=== PATIENT | female | born 1995 | race Caucasian/White ===

== ENCOUNTER 2020-01-30 15:43 | Emergency (ER) | payer OTHER ==
[2020-01-30] MEDS ORDERED: SODIUM CHLORIDE 0.9% 1,000 ML IV STA (16:04)
[2020-01-30] MEDS ORDERED: ACETAMINOPHEN TAB 500 MG TAB PO STA (16:04)
--- NOTE | 2020-01-30 16:11 | ED ---
Abdominal Pain HPI - General Chief Complaint: Abdominal Pain Stated Complaint: Abd pain-23wks PG Time Seen by Provider: 01/30/20 15:49 Source: patient Mode of arrival: wheelchair Limitations: no limitations - History of Present Illness Initial Comments: Patient is a 24-year-old female, currently 23 weeks , presenting to the emergency Department with complaints of right lower quadrant pain x 1 day. She states she started feeling a sharp pain this morning approximately 10 AM and the pain has continued and worsened throughout today. She is . Her COMPUTER SYSTEMS HARDWARE ANALYST is Dr. Dejesus, however patient has yet to see him as patient just recently moved [facility] from [place] 3wks ago. She is currently living with her mother, who has recently tested positive for Covid-19. Patient denies any fever, cough, chest pain, shortness of breath, nausea, vomiting, diarrhea. She denies any previous abdominal surgeries. She denies any vaginal bleeding, discharge. She denies dysuria. She describes the pain as sharp, worse with standing. Some mild alleviation of symptoms with laying still. She states sitting forward makes the pain worse. She has never had this kind of pain before. She has no other complaints at this time. Upon arrival to the ER, her vital signs are stable. - Related Data Previous Rx's Medication Instructions Recorded traMADol HCl [Ultram] 50 mg PO Q4H PRN #15 tab 01/03/16 Ibuprofen [Motrin] 600 mg PO Q6HR PRN #20 tab 05/16/16 Allergies Allergy/AdvReac Type Severity Reaction Status Date / Time No Known Allergies Allergy Verified 01/30/20 15:48 Review of Systems ROS Statement: Those systems with pertinent positive or pertinent negative responses have been documented in the HPI. ROS Other: All systems not noted in ROS Statement are negative. Past Medical History Past Medical History: No Reported History History of Any Multi-Drug Resistant Organisms: None Reported Past Surgical History: Orthopedic Surgery, Tonsillectomy Past Psychological History: No Psychological Hx Reported Smoking Status: Never smoker Past Alcohol Use History: None Reported Past Drug Use History: None Reported General Exam - General Exam Comments Initial Comments: GENERAL: Well-appearing, well-nourished and in no acute distress. HEAD: Atraumatic, normocephalic. EYES: Pupils equal round and reactive to light, extraocular movements intact, sclera anicteric, conjunctiva are normal. ENT: TMs normal, nares patent, oropharynx clear without exudates. Moist mucous membranes. NECK: Normal range of motion, supple without lymphadenopathy or JVD. LUNGS: Breath sounds clear to auscultation bilaterally and equal. No wheezes rales or rhonchi. HEART: Regular rate and rhythm without murmurs, rubs or gallops. ABDOMEN: 23 weeks , pain with palpation of the right lower quadrant, mild guarding. Increased pain with sitting forward. Soft, normoactive bowel sounds. : Deferred EXTREMITIES: Normal range of motion, no pitting or edema. No clubbing or cyanosis. NEUROLOGICAL: Normal speech, normal gait. PSYCH: Normal mood, normal affect. SKIN: Warm, Dry, normal turgor, no rashes or lesions noted. Limitations: no limitations Course Vital Signs 01/30/20 01/30/20 01/30/20 15:46 18:21 18:50 Temperature 98.1 F 98.0 F Pulse Rate 94 73 Respiratory 20 18 Rate Blood Pressure 115/68 100/62 O2 Sat by Pulse 98 98 Oximetry Medical Decision Making - Medical Decision Making Patient is a 24-year-old female, currently 23 weeks , , presenting with right lower quadrant pain x [address] Dejesus. Vitals are stable. Patient has pain in right lower quadrant on exam. Patient was given a Tylenol. Lab workup shows no acute abnormalities. Urine is normal, no signs of infection. ultrasound shows a single live IUP approximately 23 weeks gestation. Heart rate is normal at 147. No acute abnormalities seen. An ultrasound of the right lower quadrant shows appendix is not seen at this time however visualized portions of the right lower quadrant shows no gross abnorma lity. I discussed with patient that her pains are most likely related to round ligament pain. I did consult with on-call COMPUTER SYSTEMS HARDWARE ANALYST, Dr. Lal who agrees with this plan of care. She did not recommend any further workup at this time. Patient will follow up with their office on Sunday for further recommendations. Patient is stable for discharge and is agreement with this plan of care. Return parame ters were discussed with the patient and she verbalized understanding. Case discussed with Dr. Peraza. - Lab Data Result diagrams: 01/30/20 16:25 01/30/20 16:25 Lab Results 01/30/20 01/30/20 01/30/20 Range/Units 16:25 16:25 16:25 WBC 10.2 (3.8-10.6) k/uL RBC 3.85 (3.80-5.40) m/uL Hgb 11.8 (11.4-16.0) gm/dL Hct 34.1 (34.0-46.0) % MCV 88.7 (80.0-100.0) fL MCH 30.7 (25.0-35.0) pg MCHC 34.7 (31.0-37.0) g/dL RDW 12.1 (11.5-15.5) % Plt Count 222 (150-450) k/uL Neutrophils % 76 % Lymphocytes % 18 % Monocytes % 3 % Eosinophils % 1 % Basophils % 0 % Neutrophils # 7.7 (1.3-7.7) k/uL Lymphocytes # 1.8 (1.0-4.8) k/uL Monocytes # 0.3 (0-1.0) k/uL Eosinophils # 0.1 (0-0.7) k/uL Basophils # 0.0 (0-0.2) k/uL Sodium 135 L (137-145) mmol/L Potassium 4.1 (3.5-5.1) mmol/L Chloride 108 H (98-107) mmol/L Carbon Dioxide 20 L (22-30) mmol/L Anion Gap 7 mmol/L BUN 7 (7-17) mg/dL Creatinine 0.46 L (0.52-1.04) mg/dL Est GFR (CKD-EPI)AfAm >90 (>60 ml/min/1.73 sqM) Est GFR (CKD-EPI)NonAf >90 (>60 ml/min/1.73 sqM) Glucose 83 (74-99) mg/dL Plasma Lactic Acid Nikunj (0.7-2.0) mmol/L Calcium 8.6 (8.4-10.2) mg/dL Total Bilirubin 0.3 (0.2-1.3) mg/dL AST 25 (14-36) U/L ALT 14 (4-34) U/L Alkaline Phosphatase 71 (38-126) U/L Total Protein 6.4 (6.3-8.2) g/dL Albumin 3.6 (3.5-5.0) g/dL Urine Color Light Yellow Urine Appearance Clear (Clear) Urine pH 6.0 (5.0-8.0) Ur Specific [place] 1.011 (1.001-1.035) Urine Protein Negative (Negative) Urine Glucose (UA) Negative (Negative) Urine Ketones Negative (Negative) Urine Blood Negative (Negative) Urine Nitrite Negative (Negative) Urine Bilirubin Negative (Negative) Urine Urobilinogen <2.0 (<2.0) mg/dL Ur Leukocyte Esterase Negative (Negative) 01/30/20 Range/Units 16:25 WBC (3.8-10.6) k/uL RBC (3.80-5.40) m/uL Hgb (11.4-16.0) gm/dL Hct (34.0-46.0) % MCV (80.0-100.0) fL MCH (25.0-35.0) pg MCHC (31.0-37.0) g/dL RDW (11.5-15.5) % Plt Count (150-450) k/uL Neutrophils % % Lymphocytes % % Monocytes % % Eosinophils % % Basophils % % Neutrophils # (1.3-7.7) k/uL Lymphocytes # (1.0-4.8) k/uL Monocytes # (0-1.0) k/uL Eosinophils # (0-0.7) k/uL Basophils # (0-0.2) k/uL Sodium (137-145) mmol/L Potassium (3.5-5.1) mmol/L Chloride (98-107) mmol/L Carbon Dioxide (22-30) mmol/L Anion Gap mmol/L BUN (7-17) mg/dL Creatinine (0.52-1.04) mg/dL Est GFR (CKD-EPI)AfAm (>60 ml/min/1.73 sqM) Est GFR (CKD-EPI)NonAf (>60 ml/min/1.73 sqM) Glucose (74-99) mg/dL Plasma Lactic Acid Nikunj 1.1 (0.7-2.0) mmol/L Calcium (8.4-10.2) mg/dL Total Bilirubin (0.2-1.3) mg/dL AST (14-36) U/L ALT (4-34) U/L Alkaline Phosphatase (38-126) U/L Total Protein (6.3-8.2) g/dL Albumin (3.5-5.0) g/dL Urine Color Urine Appearance (Clear) Urine pH (5.0-8.0) Ur Specific [place] (1.001-1.035) Urine Protein (Negative) Urine Glucose (UA) (Negative) Urine Ketones (Negative) Urine Blood (Negative) Urine Nitrite (Negative) Urine Bilirubin (Negative) Urine Urobilinogen (<2.0) mg/dL Ur Leukocyte Esterase (Negative) Disposition Clinical Impression: Abdominal pain, 23 weeks gestation of Disposition: HOME SELF-CARE Condition: Stable Instructions (If sedation given, give patient instructions): Abdominal Pain in (ED) Additional Instructions: Please return to the Emergency Department if symptoms worsen or any other concerns. Follow-up with Dr. Dejesus's office as discussed. May continue with Tylenol as needed for pain. Is patient prescribed a controlled substance at d/c from ED?: No Referrals: None,Stated [Primary Care Provider] - 1-2 days
[2020-01-30 16:42] LABS: Basophils % (A) 0 %; Eosinophils # (A) 0.1 k/uL (0-0.7); Eosinophils % (A) 1 %; HCT 34.1 % (34.0-46.0); HGB 11.8 gm/dL (11.4-16.0); Lymphocytes # (A) 1.8 k/uL (1.0-4.8); Lymphocytes % (A) 18 %; MCH 30.7 pg (25.0-35.0); MCHC 34.7 g/dL (31.0-37.0); MCV 88.7 fL (80.0-100.0); Monocytes # (A) 0.3 k/uL (0-1.0); Monocytes % (A) 3 %; Neutrophils # (A) 7.7 k/uL (1.3-7.7); Neutrophils % (A) 76 %; Platelet Count 222 k/uL (150-450); RBC 3.85 m/uL (3.80-5.40); RDW 12.1 % (11.5-15.5); WBC 10.2 k/uL (3.8-10.6)
[2020-01-30 16:43] LABS: Appearance,Urine Clear (Clear); Bilirubin,Urine Negative (Negative); Blood,Urine Negative (Negative); Color,Urine Light Yellow; Glucose,Urine (UA) Negative (Negative); Ketones,Urine Negative (Negative); Leukocyte Esterase,Urine Negative (Negative); Nitrite,Urine Negative (Negative); Protein,Urine Negative (Negative); Specific Gravity,Urine 1.011 (1.001-1.035); Urobilinogen,Urine <2.0 mg/dL (<2.0)
[2020-01-30 16:59] LABS: ALT 14 U/L (4-34); AST 25 U/L (14-36); African American GFR (CKD) >90 (>60 ml/min/1.73 sqM); Albumin 3.6 g/dL (3.5-5.0); Alkaline Phosphatase 71 U/L (38-126); Anion Gap 7 mmol/L; Blood Urea Nitrogen 7 mg/dL (7-17); Calcium 8.6 mg/dL (8.4-10.2); Carbon Dioxide 20 mmol/L (22-30); Chloride 108 mmol/L (98-107); Glucose 83 mg/dL (74-99); Non-African American GFR(CKD) >90 (>60 ml/min/1.73 sqM); Potassium 4.1 mmol/L (3.5-5.1); Sodium 135 mmol/L (137-145); Total Bilirubin 0.3 mg/dL (0.2-1.3); Total Protein 6.4 g/dL (6.3-8.2)
--- NOTE | 2020-01-30 18:03 | US ---
EXAMINATION TYPE: US OB >= 14 wk fetus DATE OF EXAM: 01/30/2020 COMPARISON: None CLINICAL HISTORY: 24-year-old female, 23 wks preg, RLQ abd pain. Right pelvic pain x 1 day TECHNIQUE: Transabdominal (TA) FINDINGS: GESTATIONAL AGE / DATING Physician Established: (23 weeks/3 days) EDC: 05/25/2020 Dates by LMP: Unknown Dates by First Scan: This is 1st scan here Dates by Current Scan: (23 weeks/6 days) EDC: 05/22/2020 SURVEY IUP: Single PLACENTA: Anterior PREVIA: No Previa DAVE: 13.9 cm Normal CERVICAL LENGTH (transabdominal: norm > 3.0cm): 3.1 cm BIOMETRY PRESENTATION: Breech LIE: Longitudinal BPD: 5.8 cm 23 weeks / 6 days HC: 21.8 cm 23 weeks / 6 days AC: 20.1 cm 24 weeks / 5 days FL: 4.3 cm 24 weeks / 1 days ESTIMATED WEIGHT IN GRAMS: 693.3 grams ESTIMATED WEIGHT IN LBS/OZ: 1 lbs. 8 oz. WEIGHT PERCENTAGE BASED ON ESTABLISHED DATES: 86% HC/AC: 1.08 Normal FL/AC: 21.48 Normal HEART RATE: 147 bpm RHYTHM: Normal Reference Assistant notes: Viable single IUP measuring 23 weeks 6 days with a heart rate of 147bpm and an est imated delivery date of 05/22/2020. IMPRESSION: 1. Single live intrauterine with established gestational age of 23 weeks 3 days. Current ul trasound biometry is concordant (23 weeks 6 days) placing the child at the 86th percentile for weight . 2. Normal DAVE (13.9 cm). Anterior placenta without previa. 3. Note that the anatomy was not assessed on this emergent exam.
--- NOTE | 2020-01-30 18:04 | US ---
EXAMINATION TYPE: US abdomen APPY DATE OF EXAM: 01/30/2020 COMPARISON: NONE CLINICAL HISTORY: 24-year-old female 23 wks preg, RLQ abd pain. Right pelvic pain x 1 day, patient is 23 weeks TECHNIQUE: Targeted ultrasound examination of the right lower quadrant with graded compression for as sessment of the appendix. FINDINGS: APPENDIX Appendix not seen at this time, visualized portions of RLQ show no gross adenopathy IMPRESSION: Unable to identify the appendix. Further clinical correlation will be needed or any suspected acute a ppendicitis.
[2020-01-30 18:22] VITALS: BP 100/62; PULSE 73; RESP 18
[2020-01-30 18:51] VITALS: TEMP 98
== END 2020-01-30 18:51 | disposition home or self-care (01) ==
LOC: EC 15:43
DX: O26.892 Other specified pregnancy related conditions, second trimester (principal); Z3A.23 23 weeks gestation of pregnancy
CPT/HCPCS: 36415; 76705; 76805; 80053; 81003; 83605; 85025; 96360; 96361; 99284

== ENCOUNTER 2020-03-26 14:56 | Outpatient (CLI) | payer OTHER ==
[2020-03-26 16:10] VITALS: BP 112/64; PULSE 83; RESP 16; TEMP 96.6
[2020-03-26 17:16] LABS: Appearance,Urine Clear (Clear); Bilirubin,Urine Negative (Negative); Blood,Urine Negative (Negative); Color,Urine Yellow; Glucose,Urine (UA) Negative (Negative); Ketones,Urine Negative (Negative); Leukocyte Esterase,Urine Negative (Negative); Nitrite,Urine Negative (Negative); PH, Urine 5.5 (5.0-8.0); Protein,Urine Negative (Negative); Specific Gravity,Urine 1.011 (1.001-1.035); Urobilinogen,Urine <2.0 mg/dL (<2.0)
--- NOTE | 2020-04-04 08:23 | P.MSEPDOC ---
Presenting Problems - Arrival Data Date of Arrival on Unit: 03/26/20 Time of Arrival on Unit: 15:50 Mode of Transport: Ambulatory - Complaint OB-Reason for Admission/Chief Complaint: Possible Onset of Labor Medical History - Information : 1 Para: 0 Term: 0 : 0 Abortions: Spontaneous or Elective: 0 Number of Living Children: 0 - Gestational Age Gestational Age by KARRIE (wks/days): 31 Weeks and 3 Days Review of Systems - Review of Systems Constitutional: No problems Breast: No problems ENT: No problems Cardiovascular: No problems Respiratory: No problems Gastrointestinal: No problems Genitourinary: No problems Musculoskeletal: No problems Neurological: No problems Skin: No problems Vital Signs - Temperature Temperature: 96.6 F Temperature Source: Temporal Artery Scan - Pulse Right Radial Pulse Rate: 83 Pulse Assessment Method: Auscultation - Respirations Respiratory Rate: 16 Oxygen Delivery Method: Room Air - Blood Pressure Right Arm Blood Pressure: 112/64 Blood Pressure Mean: 80 Blood Pressure Source: Automatic Cuff Medical Screen Scoring (Pre) - Cervical Exam Dilation: 0 cm = 0 Effacement: Exam Deferred Membranes: Intact - Uterine Contractions Frequency: < 36 weeks = 6 Duration: N/A Intensity: N/A - Maternal Vital Signs Maternal Temperature: N/A Maternal Blood Pressure: N/A Signs of Preeclampsia: N/A Maternal Respirations: N/A - Maternal Trauma Maternal Trauma: N/A - Assessment - Baby A Baseline FHR: 130 Heart Rate - NICHD Category: Category I (Normal) = 0 NST: Reactive Position: N/A Station: N/A - Total Score - Baby A Total Score - Baby A: 6 - Total Score - Baby B Total Score - Baby B: 6 - Total Score - Baby C Total Score - Baby C: 6 - Level of Risk - Baby A Level of Risk - Baby A: Medium (6-9) - Level of Risk - Baby B Level of Risk - Baby B: Medium (6-9) - Level of Risk - Baby C Level of Risk - Baby C: Medium (6-9) Physician Notification (Pre) - Physician Notified Physician Notified Date: 03/26/20 Physician Notified Time: 16:00 New Order Received: Yes - Notification Comment Comment: triage orders and ffn. coming over to evaluate. cervix closed and thick Medical Screen Scoring (Post) - Cervical Exam Dilation: 0 cm = 0 Effacement: Exam Deferred Membranes: Intact - Uterine Contractions Frequency: > 5 minutes apart = 1 Duration: > 40 seconds = 2 Intensity: N/A - Maternal Vital Signs Maternal Temperature: N/A Maternal Blood Pressure: N/A Signs of Preeclampsia: N/A Maternal Respirations: N/A - Pain Assessment Pain Scale Used: Numeric (1 - 10) Pain Intensity: 3 Pain Description: Burning, Cramping Pain Frequency: Intermittent Pain Duration: 4 Pain Duration Units: Hours Pain Behavior: Vocalization Pain Aggravating Factors: Activity, Standing - Maternal Trauma Maternal Trauma: N/A - Assessment - Baby A Heart Rate: 130 Heart Rate - NICHD Category: Category I (Normal) = 0 NST: Reactive Position: N/A Station: N/A - Total Score Total Score - Baby A: 3 Total Score - Baby B: 3 Total Score - Baby C: 3 - Post Treatment Level of Risk Post Treatment Level of Risk - Baby A: Low (0-5) Post Treatment Level of Risk - Baby B: Low (0-5) Post Treatment Level of Risk - Baby C: Low (0-5) Physician Notification (Post) - Physician Notified Physician Notified Date: 03/26/20 Physician Notified Time: 17:20 Physician/Practitioner Notified:: sofía Spoke With: sofía New Order Received: Yes - Notification Comment Comment: home with instructions. here on unit. viewed strip given report. see obix charting. Disposition - Disposition OB Disposition: Discharge to home Discharge Date: 03/26/20 Discharge Time: 17:20 I agree with the RN Medical Screening Exam: Yes Risk & Benefit of care provided described in d/c instruction: Yes Diagnosis: FALSE LABOR BEFORE 37 COMPLETED WEEKS OF GEST, THIRD TRI
== END 2020-03-26 17:20 | disposition home or self-care (01) ==
LOC: FBPOP 14:56
PROVIDERS: ATTEND Obstetrics & Gynecology
DX: O47.03 False labor before 37 completed weeks of gestation, third trimester (principal); Z3A.31 31 weeks gestation of pregnancy
CPT/HCPCS: 59025; 81003; 82731; 99213

== ENCOUNTER → 2020-04-06 | Outpatient (CLI) | payer OTHER ==
--- NOTE | 2020-04-06 12:00 | US ---
EXAMINATION TYPE: US OB anatomy transabd DATE OF EXAM: 04/06/2020 COMPARISON: NONE HISTORY: O36.63XO large for dates TECHNIQUE: Transabdominal (TA) EXAM MEASUREMENTS: GESTATIONAL AGE / DATING Physician Established: (33 weeks/0 days) EDC: 05/25/20 Dates by LMP: unknown Dates by First Scan: unknown Dates by Current Scan for: (34 weeks/ days) EDC: 05/17/20 SURVEY IUP: Single PLACENTA: Anterior PREVIA: No previa DAVE: 12.6 cm CERVICAL LENGTH (transabdominal: norm > 3.0cm): 3.0 cm BIOMETRY PRESENTATION: Vertex BPD: 8.6 cm 34 weeks / 4 days HC: 31.6 cm 35 weeks / 3 days AC: 30.2 cm 34 weeks / 1 days FL: 6.6 cm 34 weeks / 1 days ESTIMATED WEIGHT IN GRAMS: 2401 grams ESTIMATED WEIGHT IN LBS/OZ: 5 lbs. 5 oz. WEIGHT PERCENTAGE BASED ON ESTABLISHED DATE: 80 % HC/AC: 1.1 FL/AC: 21.9 HEART RATE: 141 bpm RHYTHM: Normal ANATOMY SEEN (within normal limits): * Cisterna Magna (< 1.1 cm) 0.4 cm * Nuchal Fold (< 0.6 cm) 0.5 cm * Cerebellum (varies with age) 4.0 cm Midline Falx Cavus Septi Pellucidi Four Chamber Heart Outflow tracts: /RVOT Stomach Situs Nose / Lips Diaphragm Kidneys (bilateral) Bladder Cord Insert Three Vessel Cord Longitudinal Spine Transverse Spine Arms (bilateral) Legs (bilateral) ANATOMY NOT SEEN: due to shadowing and movement Choroid Plexus (bilateral) LVOT * Lateral Vent (< 1 cm) 0.9 cm (unilateral seen) IMPRESSION: Anatomy is somewhat limited given late gestational age. Some anatomy not seen detailed ab ove. 1. Very mild shortening of the cervix as it measures 2.8 cm (less than 3 cm). 2. Single live intrauterine with a weight based on established dates of 80%. No evidence of polyhydramnios in this patient who is large for dates.
== END | disposition home or self-care (01) ==
LOC: RADUSWWP 09:52
PROVIDERS: ATTEND Obstetrics & Gynecology
DX: O36.63X0 Maternal care for excessive fetal growth, third trimester, not applicable or unspecified (principal); Z3A.34 34 weeks gestation of pregnancy
CPT/HCPCS: 76811

== ENCOUNTER → 2021-03-11 | Outpatient (CLI) | payer OTHER ==
--- NOTE | 2021-03-11 15:15 | US ---
EXAMINATION TYPE: Transabdominal DATE OF EXAM: 03/11/2021 1:52 PM COMPARISON: NONE CLINICAL HISTORY: Z36 CONFIRM DATES. dates EXAM PERFORMED: Transabdominal (TA) EXAM MEASUREMENTS: GESTATIONAL AGE / DATING Physician Established: Not yet established Dates by LMP: LMP unknown Dates by First Scan: No previous this is first scan Dates by Current Scan for: ( 9 weeks/4 days) EDC: 10/10/2021 MATERNAL ANATOMY Uterus: 10.5 x 8.4 x 7.4 cm Right Ovary: 3.4 x 1.7 x 1.6 cm Left Ovary: 3.5 x 2.4 x 1.9 cm Post CDS / Adnexa: no free fluid Presence of free fluid: no Presence of corpus luteal cyst: left ovary = 1.9 x 1.9 x 1.7 cm Presence of subchorionic bleed: no GESTATION / SURVEY CRL: 2.8 cm (9 weeks/4 days) MSD: seen, not measured Yolk Sac (normal less than 6mm): 3.0 mm Heart Rate: 159 bpm Rhythm: Normal IUP: Viable IUP Age Appropriate Anatomy Limbs: Visualized Date of LMP: Unknown, Beta HcG (if available): Not available at this time IMPRESSION: Single live IUP measuring 9 weeks 4 days.
== END | disposition home or self-care (01) ==
LOC: RADUSWWP 13:32
PROVIDERS: ATTEND Obstetrics & Gynecology
DX: Z36.89 Encounter for other specified antenatal screening (principal); Z3A.09 9 weeks gestation of pregnancy
CPT/HCPCS: 76801

== ENCOUNTER → 2021-05-16 | Outpatient (CLI) | payer SELFPAY ==
--- NOTE | 2021-05-16 09:11 | US ---
EXAMINATION TYPE: US OB anatomy transabd DATE OF EXAM: 05/16/2021 COMPARISON: NONE HISTORY: O36.62X0 Large for date anatomy TECHNIQUE: Transabdominal (TA) EXAM MEASUREMENTS: GESTATIONAL AGE / DATING Physician Established: (19 weeks/0 days) EDC: 10/10/2021 Dates by LMP: (19 weeks/0 days) EDC: 10/10/2021 Dates by First Scan: (9 weeks/4 days) EDC: 10/10/2021 Dates by Current Scan for: (20 weeks/2 days) EDC: 10/01/2021 SURVEY IUP: Single PLACENTA: Anterior PREVIA: No previa DAVE: 15.70 cm Normal CERVICAL LENGTH (transabdominal: norm > 3.0cm): 3.2 cm BIOMETRY PRESENTATION: Vertex LIE: Longitudinal BPD: 4.8 cm 20 weeks / 4 days HC: 17.8 cm 20 weeks / 2 days AC: 15.2 cm 20 weeks / 3 days FL: 3.1 cm 19 weeks / 5 days ESTIMATED WEIGHT IN GRAMS: 331 grams ESTIMATED WEIGHT IN LBS/OZ: 0 lbs. 12 oz. WEIGHT PERCENTAGE BASED ON ESTABLISHED DATE: 95 % HC/AC: 1.17 cm Normal FL/AC: 20% Normal HEART RATE: 146 bpm RHYTHM: Normal ANATOMY SEEN (within normal limits): * Lateral Vent (< 1 cm) .9 cm * Cisterna Magna (< 1.1 cm) .5 cm * Nuchal Fold (< 0.6 cm) .4 cm * Cerebellum (varies with age) 1.9 cm Choroid Plexus (bilateral) Midline Falx Cavus Septi Pellucidi Stomach Situs Diaphragm Kidneys (bilateral) Bladder Cord Insert Longitudinal Spine Transverse Spine Arms (bilateral) Legs (bilateral) 4 chamber heart ANATOMY SEEN (does not appear within normal limits): ANATOMY NOT SEEN: Nose / Lips Outflow tracts: LVOT/RVOT Three-vessel CORD IMPRESSION: Single live intrauterine with gestational age measuring approximately 20 weeks and 2 days b y sonographic criteria. nose/lips, three-vessel cord and cardiac structures were not seen.
== END | disposition home or self-care (01) ==
LOC: RADUSWWP 07:05
PROVIDERS: ATTEND Obstetrics & Gynecology
DX: O36.62X0 Maternal care for excessive fetal growth, second trimester, not applicable or unspecified (principal); Z3A.20 20 weeks gestation of pregnancy
CPT/HCPCS: 76811

== ENCOUNTER → 2021-06-06 | Outpatient (CLI) | payer SELFPAY ==
--- NOTE | 2021-06-06 16:21 | US ---
EXAMINATION TYPE: US OB Call Back DATE OF EXAM: 06/06/2021 COMPARISON: US 05/16/2021 CLINICAL HISTORY: CALLBACK. GESTATIONAL AGE / DATING Dates by Initial Survey Scan: (22 weeks/0 days) EDC: 10/10/2021 HEART RATE: 139 bpm RHYTHM: Normal ANATOMY SEEN (second anatomic survey look): Four Chamber Heart: wnl Outflow tracts:? LVOT/RVOT wnl Nose / Lips: wnl Three Vessel Cord: wnl IMPRESSION: 1. Follow-up examination for completion. Portions from the previous examination which cannot be relia jaydon confirmed are within normal limits on the current exam. 2. Cardiac activity measures 139 bpm this exam.
== END | disposition home or self-care (01) ==
LOC: RADUSWWP 15:00
PROVIDERS: ATTEND Obstetrics & Gynecology
DX: Z53.9 Procedure and treatment not carried out, unspecified reason (principal)

== ENCOUNTER 2021-09-15 14:25 | Outpatient (CLI) | payer SELFPAY ==
[2021-09-15 15:43] VITALS: BP 123/77; PULSE 97; RESP 16; TEMP 98.1
--- NOTE | 2021-09-25 20:39 | P.MSEPDOC ---
Presenting Problems - Arrival Data Date of Arrival on Unit: 09/15/21 Time of Arrival on Unit: 14:41 Mode of Transport: Ambulatory - Complaint OB-Reason for Admission/Chief Complaint: Rule Out SROM Comment: pt reports possible leaking for one week Medical History - Information : 2 Para: 1 Term: 1 : 0 Abortions: Spontaneous or Elective: 0 Number of Living Children: 1 - Gestational Age Gestational Age by KARRIE (wks/days): 37 Weeks and 3 Days - History Complications: Prior Review of Systems - Review of Systems Constitutional: No problems, Recent weight loss Breast: No problems ENT: No problems Cardiovascular: No problems Respiratory: No problems Gastrointestinal: No problems Genitourinary: No problems Musculoskeletal: No problems Neurological: No problems Skin: No problems Vital Signs - Temperature Temperature: 98.1 F Temperature Source: Oral - Pulse Supine Pulse Rate: 97 Pulse Assessment Method: Automatic Cuff - Respirations Respiratory Rate: 16 Oxygen Delivery Method: Room Air - Blood Pressure Sitting Blood Pressure: 123/77 Blood Pressure Mean: 92 Blood Pressure Source: Automatic Cuff Medical Screen Scoring - Cervical Exam Dilation (cm): 0 Membranes: Intact - Assessment - Baby A Baseline FHR: 130 Heart Rate - NICHD Category: Category I (Normal) NST: Reactive Physician Notification - Physician Notified Physician Notified Date: 09/15/21 Physician Notified Time: 15:30 Physician: dr tracy Anderson Order Received: Yes - Notification Comment Comment: pt to be discharged home Maternal Triage Index - Maternal Triage Index Presenting for scheduled procedure w/no complaint: No - Stat/Priority 1 Stat Priority 1: No - Urgent/Priority 2 Urgent Priority 2: No - Prompt/Priority 3 Prompt Priority 3: No - Non-Urgent/Priority 4 Non-Urgent Priority 4: Yes Criteria Met for Priority 4: 1441 Disposition - Disposition OB Disposition: Discharge to home, Written follow up instructions reviewed Discharge Date: 09/15/21 Discharge Time: 15:42 I agree with the RN Medical Screening Exam: Yes Case reviewed; plan agreed upon as documented in EMR&OBIX.: Yes Diagnosis: FALSE LABOR AT OR AFTER 37 COMPLETED WEEKS OF GESTATION
== END 2021-09-15 15:43 | disposition home or self-care (01) ==
LOC: FBPOP 14:25
PROVIDERS: ATTEND Obstetrics & Gynecology
DX: O47.1 False labor at or after 37 completed weeks of gestation (principal); Z3A.37 37 weeks gestation of pregnancy
CPT/HCPCS: 59025; 84112; 99213

== ENCOUNTER 2021-09-28 06:38 | Inpatient (IN) | payer OTHER ==
[2021-09-27 08:43] VITALS: BMI 36.5
[2021-09-28] MEDS ORDERED: LACTATED RINGERS 1,000 ML IV ONE (06:50)
[2021-09-28] MEDS ORDERED: LACTATED RINGERS 1,000 ML IV SCH (07:00)
[2021-09-28] MEDS ORDERED: CITRIC ACID-SODIUM CITRATE 15 ML CUP PO ONE (07:00)
[2021-09-28 07:09] LABS: Basophils % (A) 0 %; Eosinophils # (A) 0.1 k/uL (0-0.7); Eosinophils % (A) 1 %; HCT 32.9 % (34.0-46.0); HGB 11.6 gm/dL (11.4-16.0); Lymphocytes # (A) 2.1 k/uL (1.0-4.8); Lymphocytes % (A) 21 %; MCH 30.1 pg (25.0-35.0); MCHC 35.2 g/dL (31.0-37.0); MCV 85.6 fL (80.0-100.0); Mean Platelet Volume 8.1; Monocytes # (A) 0.4 k/uL (0-1.0); Monocytes % (A) 4 %; Neutrophils # (A) 6.9 k/uL (1.3-7.7); Neutrophils % (A) 72 %; Platelet Count 226 k/uL (150-450); RBC 3.84 m/uL (3.80-5.40); RDW 12.4 % (11.5-15.5); WBC 9.6 k/uL (3.8-10.6)
[2021-09-28] MEDS ORDERED: KETOROLAC 15 MG/ML 1 ML VIAL ONE (08:32)
[2021-09-28] MEDS ORDERED: OXYTOCIN 30 UNITS/500 ML NS BAG IV ONE (08:32)
[2021-09-28] MEDS ORDERED: MORPHINE SULFATE (PF) 0.3 MG/0.3 ML SYR ONE (08:32)
[2021-09-28] MEDS ORDERED: ONDANSETRON 4 MG/2 ML VIAL ONE (08:32)
[2021-09-28] MEDS ORDERED: NALBUPHINE 10 MG/ML (1 ML AMP) ONE (08:32)
[2021-09-28] MEDS ORDERED: ZOLPIDEM 5 MG TAB PO PRN (09:10)
[2021-09-28] MEDS ORDERED: HYDROmorphone 2 MG TAB PO PRN (09:10)
[2021-09-28] MEDS ORDERED: diphenhydrAMINE 50 MG CAP PO PRN (09:10)
[2021-09-28] MEDS ORDERED: NALOXONE 0.4 MG/ML 1 ML VIAL IV PRN ×2 (09:10→10:56)
[2021-09-28] MEDS ORDERED: diphenhydrAMINE 50 MG/ML 1 ML VIAL IVP PRN ×2 (09:10)
[2021-09-28] MEDS ORDERED: diphenhydrAMINE 25 MG CAP PO PRN (09:10)
[2021-09-28] MEDS ORDERED: METOCLOPRAMIDE 5 MG/ML 2 ML VIAL IVP PRN (09:10)
[2021-09-28] MEDS ORDERED: ONDANSETRON 4 MG/2 ML VIAL IVP PRN (09:10)
--- NOTE | 2021-09-28 09:13 | P.HPOB ---
History of Present Illness H&P Date: 09/28/21 Chief Complaint: Intrauterine At term: Repeat section Aminta is a 25-year-old G3 to P1 1 prior section who ryes repeat section. Her course generally speaking has been unremarkable. Baby was noted to be an approximately 75th percentile. She is a sickle cell trait and is aware of this partner relates that he was tested and w as negative for sickle cell trait. She is otherwise feeling well there is a category 1 tracing noted this morning. Pertinent labs include negative group B strep status. O+ blood type, Rh and it was negative, rubella is immune, hepatitis B surface antigen/HIV and RPR are all negative. Risks/benefits and alternatives were reviewed with the patient in detail and all questions were answered for her prior to proceeding to the operating room. Past Medical History Past Medical History: No Reported History Additional Past Medical History / Comment(s): Low iron w/ previous . History of Any Multi-Drug Resistant Organisms: None Reported Past Surgical History: Section, Orthopedic Surgery, Tonsillectomy Additional Past Surgical History / Comment(s): Lt knee surgery. Nancy teeth extracted. Past Anesthesia/Blood Transfusion Reactions: No Reported Reaction Past Psychological History: No Psychological Hx Reported Smoking Status: Never smoker Past Alcohol Use History: None Reported Past Drug Use History: None Reported - Past Family History Mother Additional Family Medical History / Comment(s): Mother "has a hole in her heart" Medications and Allergies Home Medications Medication Instructions Recorded Confirmed Type Acetaminophen Tab [Tylenol] 650 mg PO Q6H PRN 09/27/21 09/28/21 History Allergies Allergy/AdvReac Type Severity Reaction Status Date / Time No Known Allergies Allergy Verified 09/28/21 06:48 Exam Osteopathic Statement: *. No significant issues noted on an osteopathic structural exam other than those noted in the History and Physical/Consult. Vital Signs Temp Pulse Resp BP Pulse Ox 09/28/21 06:55 96.8 F L 98 18 105/60 98 Intake and Output 09/27/21 09/28/21 09/28/21 22:59 06:59 14:59 Other: Weight 108.862 kg - OBG Physical Exam Breast: both: normal (no masses) Abdomen: bowel sounds normal, no diffuse tenderness, no bruit present, no guarding noted, no hepatomegaly, no splenomegaly, no mass Vulva: both: normal Vagina: normal moisture, no discharge Cervix: no lesion, no discharge Uterus: normal size, normal contour Adnexa: both: normal Anus/Rectum: normal perianal skin, no rectal mass, no hemorrhoids, heme negative Results Result Diagrams: 09/28/21 06:58 Abnormal Lab Results - Last 24 Hours (Table) 09/28/21 Range/Units 06:58 Hct 32.9 L (34.0-46.0) %
--- NOTE | 2021-09-28 09:18 | P.OP ---
Date of Procedure: 09/28/21 Preoperative Diagnosis: Intrauterine at term: Prior section Postoperative Diagnosis: Same Procedure(s) Performed: Repeat low transverse section Anesthesia: spinal Surgeon: Glenroy Dejesus Gis Mapping Technician #1: Jose Meng Estimated Blood Loss (ml): 193 IV fluids (ml): 800 Urine output (ml): 400 Pathology: none sent Condition: stable Disposition: floor Operative Findings: Male scores are not on the chart yet. Weight was 8 lbs. 11 oz. Description of Procedure: Rajiv was taken to the operating suite where a spinal anesthetic was found be adequate. She was prepped and draped in the normal sterile fashion and placed in the dorsal supine position with leftward tilt. Initially a Pfannenstiel skin incision was made and this incision was then carried through to the underlying layer of the fascia was second knife. Fascia was then nicked in the midline and this opening was extended laterally with López scissors. Superior and inferior aspect of this incision were then grasped tented up and bluntly and sharply dissected off the rectus muscles. Rectus muscles were then divided the midline and sharp dissection the peritoneum was performed. This opening was then extended superiorly and inferiorly with good visualization of both bowel bladder. Bladder blade was then placed and the bladder flap identified. It was entered with metastases scissors and carried across face uterus and then bluntly dissected out of the operative field. Knife was then used to incise uterus. This opening was fully developed with hemostat and then extended bluntly. Head was then H medically delivered and mouth nares were bulb suctioned. Interim posterior shoulders were easily delivered once this was accomplished an nursery personnel was present to assume care. Umbilical was then clamped cut usual fashion. Placenta was then delivered intact and Pitocin was added to the IV. Uterus was then exteriorized cleared of clots and debris and closed in 2 layers with 0 Vicryl suture. Once excellent hemostasis was obtained blood and debris was suctioned the posterior cul-de-sac and the gutters were cleared. Uterus was reinserted the abdomen and the peritoneal layer was reapproximated with 0 Vicryl suture. Fascial layer was then closed with 0 Vicryl suture. One layer of 3-0 Vicryl was placed in deep subcuticular tissues to reposited skin and the skin was then closed with 3-0 Vicryl subcuticular.
[2021-09-28] MEDS: LACTATED RINGERS 1,000 ML IV SCH ×2 (10:53→18:37)
[2021-09-28] MEDS ORDERED: MORPHINE SULFATE 2 MG/ML SYRINGE IVP PRN (10:56)
[2021-09-28] MEDS ORDERED: NALBUPHINE 10 MG/ML (1 ML AMP) IV PRN (10:56)
[2021-09-28] MEDS ORDERED: OXYTOCIN 30 UNITS/500 ML NS 30 UNIT in SALINE 1 500ML.BAG IV SCH (11:15)
[2021-09-28] MEDS: ACETAMINOPHEN TAB 500 MG TAB PO SCH ×2 (12:20→18:36)
[2021-09-28] MEDS: KETOROLAC 30 MG/ML 1 ML VIAL IVP SCH ×2 (14:08→23:35)
[2021-09-28] MEDS: IBUPROFEN 600 MG TAB PO SCH (15:45)
[2021-09-28] MEDS: SENNOSIDES-DOCUSATE SODIUM 1 EACH TAB PO SCH (19:45)
[2021-09-29 03:27] VITALS: RESP 16
[2021-09-29] MEDS: IBUPROFEN 600 MG TAB PO SCH ×5 (03:27→23:35)
[2021-09-29] MEDS: ACETAMINOPHEN TAB 500 MG TAB PO SCH ×4 (03:34→21:31)
[2021-09-29] MEDS: LACTATED RINGERS 1,000 ML IV SCH ×2 (03:35→21:31)
[2021-09-29 06:16] LABS: Basophils % (A) 0 %; Eosinophils # (A) 0.2 k/uL (0-0.7); Eosinophils % (A) 2 %; HCT 29.8 % (34.0-46.0); HGB 10.3 gm/dL (11.4-16.0); Lymphocytes # (A) 1.7 k/uL (1.0-4.8); Lymphocytes % (A) 17 %; MCH 29.5 pg (25.0-35.0); MCHC 34.4 g/dL (31.0-37.0); MCV 85.6 fL (80.0-100.0); Monocytes # (A) 0.3 k/uL (0-1.0); Monocytes % (A) 3 %; Neutrophils # (A) 7.5 k/uL (1.3-7.7); Neutrophils % (A) 77 %; Platelet Count 186 k/uL (150-450); RBC 3.48 m/uL (3.80-5.40); RDW 12.4 % (11.5-15.5); WBC 9.7 k/uL (3.8-10.6)
--- NOTE | 2021-09-29 07:28 | P.PNOBGPC ---
Subjective - Subjective Principal diagnosis: Post op day 1 Interval history: Overall doing very well. She is ambulating, voiding and she is tolerating a diet signs are stable and she is afebrile. Have her removed dressing later today. Patient reports: Reports appetite normal, Reports voiding normally, Reports pain well controlled, Reports ambulating normally : doing well Objective - Vital Signs Latest vital signs: Vital Signs Temp Pulse Resp BP Pulse Ox 09/29/21 03:26 98.2 F 85 16 99/65 97 09/29/21 00:00 98.7 F 76 19 103/56 09/28/21 20:00 97.4 F L 58 L 16 109/68 98 09/28/21 16:00 98.0 F 82 18 97/61 97 09/28/21 13:56 18 09/28/21 11:56 18 97 09/28/21 11:30 96.4 F L 66 18 100/57 97 09/28/21 11:20 75 96/55 09/28/21 10:56 98 09/28/21 10:50 71 101/57 09/28/21 10:20 71 106/59 09/28/21 10:05 71 106/59 09/28/21 09:50 81 110/57 09/28/21 09:35 85 103/51 09/28/21 09:20 97.6 F 76 18 111/56 98 Intake and Output 09/28/21 09/29/21 09/29/21 22:59 06:59 14:59 Intake Total 480 Output Total 1900 1400 Balance -1420 -1400 Intake: Oral 480 Output: Urine 1900 1400 Uretheral (Murray) 1200 700 - Exam Lungs: bilateral: normal Chest: Normal S1, Normal S2 Extremities: Present: normal Abdomen: Present: normal appearance, soft. Absent: distention, tenderness Incision: Present: normal, dry, intact Uterus: Present: normal, firm - Labs Labs: Abnormal Lab Results - Last 24 Hours (Table) 09/29/21 Range/Units 06:01 RBC 3.48 L (3.80-5.40) m/uL Hgb 10.3 L (11.4-16.0) gm/dL Hct 29.8 L (34.0-46.0) %
--- NOTE | 2021-09-29 08:31 | P.PN ---
Progress Note - Text Progress Note Date: 09/29/21 Postoperative day 1 status post section under spinal anesthesia, and i ntrathecal morphine given for postoperative analgesia, patient doing well, there is no anesthesia related complications, Patient had no headache, vital signs stable , Assessment and plan= postop day 1 status post , doing well there is no anesthesia related complication. Patient was seen at 7 AM today
[2021-09-29] MEDS: SENNOSIDES-DOCUSATE SODIUM 1 EACH TAB PO SCH ×2 (08:35→21:31)
[2021-09-29] MEDS: KETOROLAC 30 MG/ML 1 ML VIAL IVP SCH (21:30)
[2021-09-30] MEDS: ACETAMINOPHEN TAB 500 MG TAB PO SCH ×2 (03:36→11:04)
[2021-09-30] MEDS: IBUPROFEN 600 MG TAB PO SCH (06:22)
[2021-09-30] MEDS: KETOROLAC 30 MG/ML 1 ML VIAL IVP SCH ×2 (06:22→06:23)
[2021-09-30] MEDS: LACTATED RINGERS 1,000 ML IV SCH (06:23)
--- NOTE | 2021-09-30 07:27 | P.DS ---
Providers Date of admission: 09/28/21 06:38 Expected date of discharge: 09/30/21 Attending physician: Glenroy Dejesus Primary care physician: Stated None Hospital Course: Medicine is doing very well postop day 2. She is ambulating, she is voiding, and she is tolerating a diet. She is passing flatus. She requests discharge home today. Her vital signs are stable and afebrile. Her heart is regular, lungs are clear, extremities are without pain. Her incision is clean dry and intact and her abdomen is otherwise soft with bowel sounds. Lochia is light. Assessment postop day 2. Plan discharged home follow up with me in 1 week. Prescription for E[place] and Motrin for to the pharmacy. All other instructions and discharge questions are answered and provided and she will be discharged home later today. Patient Condition at Discharge: Good Plan - Discharge Summary Discharge Rx Participant: No New Discharge Prescriptions: New HYDROcodone/APAP 5-325MG [[place] 5-325] 1 tab PO Q4HR PRN #30 tab PRN Reason: Pain Ibuprofen [Motrin] 600 mg PO Q6HR PRN #30 tab PRN Reason: Pain No Action Acetaminophen Tab [Tylenol] 650 mg PO Q6H PRN PRN Reason: Pain Discharge Medication List Acetaminophen Tab [Tylenol] 650 mg PO Q6H PRN 09/27/21 [History] HYDROcodone/APAP 5-325MG [[place] 5-325] 1 tab PO Q4HR PRN #30 tab 09/30/21 [Rx] Ibuprofen [Motrin] 600 mg PO Q6HR PRN #30 tab 09/30/21 [Rx] Follow up Appointment(s)/Referral(s): Glenroy Dejesus DO [Doctor of Osteopathic Medicine] - 1 Week Activity/Diet/Wound Care/Special Instructions: No heavy lifting, limit stairs and driving, and pelvic rest. If any high temperatures, heavy bleeding, or severe pain call my office. She is aware to have no tub baths for at least 2 weeks but showering is fine. She is also aware to not take any Tylenol with her E[place] as there is Tylenol in it. Discharge Disposition: HOME SELF-CARE
[2021-09-30 09:55] VITALS: BP 102/62; PULSE 78; TEMP 98.3
== END 2021-09-30 12:40 | disposition home or self-care (01) | DRG 788 ==
LOC: 4FBP 06:38
PROVIDERS: ADMIT Obstetrics & Gynecology; ATTEND Obstetrics & Gynecology
PROC: 10D00Z1 Extraction of Products of Conception, Low, Open Approach (ICD-10-PCS; principal; 2021-09-28 08:30)
DX: O34.211 Maternal care for low transverse scar from previous cesarean delivery (principal); D57.3 Sickle-cell trait; O99.02 Anemia complicating childbirth; O26.893 Other specified pregnancy related conditions, third trimester; Z3A.39 39 weeks gestation of pregnancy; Z37.0 Single live birth; Z67.41 Type O blood, Rh negative
CPT/HCPCS: 85025; 86850; 86900; 86901